=== PATIENT | male | born 1995 | race Hispanic/Latino ===

== ENCOUNTER → 2018-01-10 | Outpatient (CLI) | payer OTHER ==
--- NOTE | 2018-01-10 15:24 | Diagnostic Imaging Report ---
CT scan of the LEFT WRIST, WITHOUT contrast. TECHNIQUE: Standard departmental protocols were used. Sagittal and coronal reformatted images were obtained. PROTOCOL: Routine COMPLICATIONS: None RADIATION DOSE: Total DLP = 118.38 mGy*cm HISTORY: Pain COMPARISON: None. FINDINGS: Bones: No fracture or dislocation. No evidence of avascular necrosis. Small bone island in the distal dorsal radius Joints: Intact. No osseous erosion Soft tissues: Mild soft tissue swelling. No radiopaque foreign body. IMPRESSION: Mild soft tissue swelling about the wrist. Signed by: Dr. Joby Todd M.D. on 01/10/2018 3:20 PM
== END ==
LOC: CT 13:53
PROVIDERS: ATTEND Family Medicine
DX: M25.532 Pain in left wrist (principal)